=== PATIENT | female | born 1945 | race Caucasian/White ===

== ENCOUNTER 2017-05-25 11:55 | Emergency (ER) | payer BC ==
[2017-05-25 12:10] VITALS: BP 129/78
[2017-05-25] MEDS ORDERED: Amoxicillin/Clavulanate TAB* 875 MG PO ONE (12:31)
[2017-05-25] MEDS ORDERED: Tetan/Diph/Pertus SYR(Tdap)* 0.5 ML SYR(BOOSTRIX) use SYR IM ONE (12:31)
--- NOTE | 2017-05-25 13:37 | RAD ---
INDICATION: Left thumb injury COMPARISON: None TECHNIQUE: AP, lateral, and oblique views were obtained. FINDINGS: There is no acute fracture. The joint spaces are maintained. There is soft tissue swelling about the proximal thumb. IMPRESSION: NO ACUTE FRACTURE. NO FOREIGN BODY.
--- NOTE | 2017-05-25 13:58 | UC ---
Bite Injury/Animal HPI - HPI Summary HPI Summary: TRIED TO BREAK UP A FIGHT AMONGST HER OWN PET DOGS TWO DAYS AGO. ONE DOG BIT HER LEFT THUMB. TODAY HAVING SWELLING AND PAIN. TETANUS UNKNOWN. NO DISCHARGE. FULL ROM LEFT THUMB. PATEINT IS LEFT HAND DOMINANT. - History of Current Complaint Chief Complaint: UCBiteInjury Stated Complaint: DOG BITE Time Seen by Provider: 05/25/17 12:28 Hx Obtained From: Patient Severity Currently: Moderate Severity Initially: Mild Pain Intensity: 5 Pain Scale Used: 0-10 Numeric Onset/Duration: Sudden Onset, Lasting Days Type of Bite: Pet Has Animal Been Immunized?: Yes Character: Puncture, Abrasion/Laceration Aggravating Factor(s): Nothing Alleviating Factor(s): Nothing Associated Signs And Symptoms: Positive: Erythema, Swelling Hx of Bite: Provoked by: - DOG FIGHT Animal Available for Observation: Yes Animal Control Notified: Yes - Risk Factors Infection/Sepsis Risk Factors: Negative - Allergies/Home Medications Allergies/Adverse Reactions: Allergies Allergy/AdvReac Type Severity Reaction Status Date / Time No Known Allergies Allergy Verified 05/25/17 12:10 PMH/Surg Hx/FS Hx/Imm Hx Previously Healthy: Yes - Surgical History Surgical History: Yes Surgery Procedure, Year, and Place: Gastric bypass 1985 - Family History Known Family History: Negative: Blood Disorder - Social History Occupation: Retired Lives: With Family Alcohol Use: None Substance Use Type: None Smoking Status (MU): Never Smoked Tobacco - Immunization History Most Recent Tetanus Shot: 2004 Review of Systems Constitutional: Negative Skin: Other - PUNCTURE WOUNDS ABRASIONS TO LEFT THUMB Eyes: Negative ENT: Negative Respiratory: Negative Cardiovascular: Negative Gastrointestinal: Negative Genitourinary: Negative Motor: Negative Neurovascular: Negative Musculoskeletal: Arthralgia, Myalgia Neurological: Negative Psychological: Negative Is Patient Immunocompromised?: No All Other Systems Reviewed And Are Negative: Yes Physical Exam Triage Information Reviewed: Yes Appearance: Well-Appearing, No Pain Distress, Well-Nourished Vital Signs: Initial Vital Signs Temp 99.0 F 05/25/17 12:05 Pulse 86 05/25/17 12:05 Resp 18 05/25/17 12:05 BP 129/78 05/25/17 12:05 Pulse Ox 99 05/25/17 12:05 Vital Signs Reviewed: Yes Eye Exam: Normal ENT Exam: Normal ENT: Positive: Normal ENT inspection Dental Exam: Normal Neck exam: Normal Neck: Positive: Supple, Nontender, No Lymphadenopathy Respiratory Exam: Normal Respiratory: Positive: Chest non-tender, Lungs clear, Normal breath sounds, No respiratory distress, No accessory muscle use Cardiovascular Exam: Normal Cardiovascular: Positive: RRR, No Murmur, Pulses Normal Abdominal Exam: Normal Musculoskeletal: Positive: Strength Intact, ROM Intact, Edema @ - LEFT THUMB Neurological Exam: Normal Psychological Exam: Normal Skin: Positive: Other - PUNCTURE WOUNDS LEFT THUMB, ABRASIONS LEFT THUMB Bite Injury Course/Dx - Differential Dx/Diagnosis Differential Diagnosis/HQI/PQRI: Crush Injury, Joint Space Infection, Superficial Infection, Deep Space Infection Provider Diagnoses: DOG BITE/PUNCTURE WOUND TO LEFT THUMB Discharge - Discharge Plan Condition: Stable Disposition: HOME Prescriptions: Amoxicillin/Clavulanate TAB* [Augmentin TAB 875*] 875 mg PO BID #20 tab Patient Education Materials: Animal Bite (ED) Referrals: Octavia Yanes MD [Primary Care Provider] - Yeimi Joy MD [Medical Doctor] -
== END 2017-05-25 13:45 | disposition home or self-care (01) ==
LOC: UCEAST 11:55
DX: S61.052A Open bite of left thumb without damage to nail, initial encounter (principal); W54.0XXA Bitten by dog, initial encounter; Y92.9 Unspecified place or not applicable
CPT/HCPCS: 90471; 90715; 99212; A9270-GY; G0463